=== PATIENT | male | born 2000 | race Caucasian/White ===

== ENCOUNTER 2018-12-18 22:40 | Emergency (ER) | payer OTHER, SELFPAY ==
[2018-12-18] MEDS ORDERED: Ibuprofen 200 MG TAB ONE (22:57)
[2018-12-18] MEDS ORDERED: Cephalexin 500 MG CAP ONE (22:57)
== END 2018-12-18 23:00 | disposition home or self-care (01) ==
LOC: BURERS 22:40
DX: L04.3 Acute lymphadenitis of lower limb (principal); L04.1 Acute lymphadenitis of trunk; F17.210 Nicotine dependence, cigarettes, uncomplicated
CPT/HCPCS: 99282

== ENCOUNTER 2019-02-05 05:34 | Emergency (ER) | payer SELFPAY ==
[2019-02-05] MEDS ORDERED: Azithromycin 250 MG TAB ONE (06:21)
[2019-02-05] MEDS ORDERED: Ibuprofen 800 MG TAB ONE (06:21)
--- NOTE | 2019-02-05 07:36 | RAD ---
CHEST 2 VIEWS: DATE: 02/05/2019. FINDINGS: The heart is normal in size and the lungs are clear. No infiltrate or effusion was seen. There is n o vascular congestion or edema. The mediastinum appears normal. IMPRESSION: No acute thoracic findings. POS: HOME
== END 2019-02-05 06:40 | disposition home or self-care (01) ==
LOC: BURERS 05:34
DX: J18.1 Lobar pneumonia, unspecified organism (principal); F17.210 Nicotine dependence, cigarettes, uncomplicated
CPT/HCPCS: 71046

== ENCOUNTER 2023-05-14 17:33 | Emergency (ER) | payer SELFPAY ==
[2023-05-14 18:35] LABS: #Neutrophils 4.1 thou/uL (1.40-6.50); %Basophils 1.1 % (0.0-1.0); %Eosinophils 3.2 % (0.0-10.0); %Lymphocytes 15.4 % (21.0-51.0); %Monocytes 8.1 % (0.0-10.0); %Neutrophils 72.2 % (42.0-75.0); Hematocrit 46.1 % (42.0-52.0); Hemoglobin 15.2 g/dL (14.0-18.0); Manual Diff?? YES; Mean Corpuscular HGB CONC 33.1 g/dL (32.0-36.0); Mean Corpuscular Hemoglobin 30.8 pg (27.0-31.0); Mean Corpuscular Volume 92.9 fl (78.0-98.0); Mean Platelet Volume 7.8 fL (7.4-10.4); Platelet Count 158 10x3/uL (130-400); RBC Distribution Width 11.9 % (11.5-14.5); Red Blood Cell (RBC) Count 4.96 mill/uL (4.70-6.10); White Blood Cell (WBC) Count 5.7 10x3/uL (4.8-10.8)
[2023-05-14 18:36] LABS: #Basophils 0.1 thou/uL (0.0-0.2); #Eosinphils 0.2 thou/uL (0.0-0.7); #Monocytes 0.5 thou/uL (0.11-0.59)
[2023-05-14 18:37] LABS: MDiff Complete? YES
[2023-05-14 18:48] LABS: Anion Gap 18 mmol/L (10-20); BUN (Urea Nitrogen) 12 mg/dL (8.9-20.6); Carbon Dioxide 24 mmol/L (22-29); Chloride 101 mmol/L (98-107); Potassium 3.5 mmol/L (3.5-5.1); Sodium 139 mmol/L (136-145)
[2023-05-14 18:49] LABS: ALT (SGPT) 24 U/L (8-55); AST (SGOT) 23 U/L (5-34); Albumin 4.4 g/dL (3.5-5.0); Alkaline Phosphatase 77 U/L (40-110); CK (CPK) 337 U/L (30-200); Calc. Creatinine Clearance 0 mL/min (70-130); Calcium 9.6 mg/dL (7.6-10.4); Estimated GFR 126; Glucose 98 mg/dL (70-105); Protein, Total 7.4 g/dL (6.0-8.3)
[2023-05-14 18:51] LABS: Acetaminophen Less than 10 mcg/mL (10.0-30.0)
[2023-05-14 18:52] LABS: Alcohol Less than 10.0 mg/dL (Less than 10); Salicylate Less than 8.0 mg/dL (15.0-30.0)
[2023-05-14 21:06] LABS: Amphetamine Detected (NotDetected); Barbiturates Screen Not Detected (NotDetected); Benzodiazepine Screen Detected (NotDetected); Cocaine Metabolite Screen Not Detected (NotDetected); Methadone Not Detected (NotDetected); Methamphetamine Detected (NotDetected); Opiate Screen Not Detected (NotDetected); Oxycodone Screen Not Detected (NotDetected); Phencyclidine (PCP) Not Detected (NotDetected); THC/Cannabinoid Screen Detected (NotDetected); Tricyclic Screen Not Detected (NotDetected)
[2023-05-15 04:36] LABS: #Lymphocytes 0.9 thou/uL (1.20-3.40)
== END 2023-05-15 02:05 | disposition home or self-care (01) ==
LOC: EEVIPCON 17:33 → BURERS 17:33
DX: T14.91XA Suicide attempt, initial encounter (principal); F19.10 Other psychoactive substance abuse, uncomplicated; F17.200 Nicotine dependence, unspecified, uncomplicated; X83.8XXA Intentional self-harm by other specified means, initial encounter
CPT/HCPCS: 36415; 72125; 80053; 80306; 80307; 82550; 84443; 85025

== ENCOUNTER 2025-04-19 01:23 | Emergency (ER) | payer OTHER, SELFPAY | END 2025-04-19 03:45 | disposition home or self-care (01) | LOC: BURERS 01:23 → EEVIPCON 01:23 → BURERS 03:45 | DX: F20.9 Schizophrenia, unspecified (principal); F41.9 Anxiety disorder, unspecified; F17.200 Nicotine dependence, unspecified, uncomplicated | CPT/HCPCS: 96372; 99283; J3360; J3486 ==

== ENCOUNTER 2025-04-20 10:11 | Emergency (ER) | payer OTHER, SELFPAY | END 2025-04-20 11:19 | disposition home or self-care (01) | LOC: BURERS 10:11 → EEVIPCON 10:11 → BURERS 11:19 | DX: S60.222A Contusion of left hand, initial encounter (principal); S60.221A Contusion of right hand, initial encounter; S90.32XA Contusion of left foot, initial encounter; S90.31XA Contusion of right foot, initial encounter; F17.210 Nicotine dependence, cigarettes, uncomplicated; F84.0 Autistic disorder; Y04.0XXA Assault by unarmed brawl or fight, initial encounter | CPT/HCPCS: 99283 ==